=== PATIENT | male | born 1965 | race Caucasian/White ===

== ENCOUNTER 2019-11-30 14:32 | Outpatient (CLI) | payer BC, SELFPAY ==
--- NOTE | 2019-11-30 14:40 | XR_ITS ---
WS: [id number] LUMBAR SPINE FLEXION AND EXTENSION TECHNIQUE: 3 views of the lumbar spine: Lateral neutral, flexion, and extension views. CLINICAL INFORMATION: LOW BACK PAIN COMPARISON: None. FINDINGS: Slight grade 1 anterolisthesis L4 on L5 measuring 4.7 mm. Anterolisthesis L4 on L5 measures 7.1 mm in flexion and decreases to 4.4 mm in extension. Cholecystectomy clips.Mild facet arthropathy L4-L5 and L5-S1. XR/XR lumbar spine f/e only [id number] IMPRESSION: Mild flexion-extension instability L4-5.
== END 2019-11-30 14:33 | disposition home or self-care (01) ==
PROVIDERS: Family Provider Family Medicine; PCP Family Medicine; Visit Provider Nurse Practitioner
DX: M53.2X6 Spinal instabilities, lumbar region (principal); M54.5 Low back pain
CPT/HCPCS: 72120